=== PATIENT | female | born 1995 | race Caucasian/White ===

== ENCOUNTER → 2023-01-22 | Outpatient (CLI) | payer OTHER ==
[2023-01-22 10:08] LABS: THYROID STIMULATING HORMONE 2.2 uIU/mL (0.36-3.74)
== END | disposition home or self-care (01) ==
LOC: MSR 09:20
PROVIDERS: ATTEND Chiropractor
DX: M19.011 Primary osteoarthritis, right shoulder (principal); R07.9 Chest pain, unspecified; E07.9 Disorder of thyroid, unspecified; M79.601 Pain in right arm
CPT/HCPCS: 71046; 84436; 84443; 84481; 36415-L1; 36415-TC